=== PATIENT | male | born 1985 | race Caucasian/White ===

== ENCOUNTER 2019-11-23 23:05 | Emergency (ER) | payer OTHER ==
[~2019-11-23] VITALS: Ht 162.6 cm; Wt 78.9 kg
[2019-11-23 23:10] VITALS: BP 133/82
--- NOTE | 2019-11-23 23:16 | NUR ---
PT AMBULATED TO BED 05 WITH STEADY GAIT.
[2019-11-23 23:20] VITALS: BP 133/82
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
--- NOTE | 2019-11-23 23:25 | NUR ---
XRAY AT BEDSIDE.
[2019-11-24] MEDS ORDERED: KETOROLAC 60 MG/2 ML VIAL IM ONE (00:35)
--- NOTE | 2019-11-24 01:03 | NUR ---
Patient discharged with v/s stable. Written and verbal after care instructions given and explained. Patient alert, oriented and verbalized understanding of instructions. Ambulatory with steady gait. All questions addressed prior to discharge. ID band removed. Patient advised to follow up with PMD. Rx of MOTRIN AND NORCO given. Patient educated on indication of medication including possible reaction and side effects. Opportunity to ask questions provided and answered. PT IN STABLE CONDITION.
== END 2019-11-24 01:03 | disposition home or self-care (01) ==
LOC: MED 23:05
DX: S63.617A Unspecified sprain of left little finger, initial encounter (principal); S90.01XA Contusion of right ankle, initial encounter; E11.9 Type 2 diabetes mellitus without complications; V89.2XXA Person injured in unspecified motor-vehicle accident, traffic, initial encounter; Y93.89 Activity, other specified; Y92.89 Other specified places as the place of occurrence of the external cause; Y99.8 Other external cause status
CPT/HCPCS: 29130; 73130; 73610; 96372; 99284; J1885; Q0092

== ENCOUNTER 2020-08-23 21:16 | Emergency (ER) | payer OTHER ==
[~2020-08-23] VITALS: Ht 162.6 cm; Wt 75.7 kg
[2020-08-23 21:35] VITALS: BP 124/80
--- NOTE | 2020-08-23 21:40 | NUR ---
34/M C/O FEVER, COUGH, BODYACHES,HEADACHE WHICH STARTED TODAY. PT TESTED FOR COVID LAST TUESDAY WITH NEGATIVE RESULTS. PT DENIES ANY SOB, NAUSEA, VOMITING, DIARRHEA. PMH: KATIA GONGORA
[2020-08-23] MEDS ORDERED: ACETAMINOPHEN EXTRA STRENGTH 500 MG TAB PO ONE (21:45)
--- NOTE | 2020-08-23 22:31 | NUR ---
DR. LINO AT BEDSIDE EXAMINING PATIENT
[2020-08-23] MEDS ORDERED: KETOROLAC 30 MG/ML VIAL IVP ONE (22:35)
[2020-08-23] MEDS ORDERED: NACL 0.9% 2,000 ML IV ONE (22:35)
--- NOTE | 2020-08-23 22:47 | NUR ---
RADIOLOGY AT BEDSIDE
[2020-08-23 23:20] LABS: BASOPHILS % (AUTO) 0.5 % (0.0-2.0); EOSINOPHILS % (AUTO) 0.7 % (0.0-4.0); HEMATOCRIT 40.7 % (36-52); HEMOGLOBIN 13.8 g/dL (12.0-18.0); LYMPHOCYTES % (AUTO) 16.4 % (20.5-51.1); MEAN CORPUSCULAR HEMOGLOBIN 30 pg (27-31); MEAN CORPUSCULAR HGB CONC 34 g/dL (33-37); MEAN CORPUSCULAR VOLUME 87.8 fL (80-94); MONOCYTES # (AUTO) 0.5 K/uL (0.8-1.0); MONOCYTES % (AUTO) 7.8 % (1.7-9.3); NEUTROPHILS # (AUTO) 4.5 K/uL (1.8-7.7); NEUTROPHILS % (AUTO) 74.6 % (42.2-75.2); PLATELET COUNT (AUTO) 276 K/uL (140-450); RED BLOOD CELL COUNT(AUTO) 4.63 MIL/uL (4.20-6.10); RED CELL DISTRIBUTION WIDTH 12.2 % (11.6-13.7)
--- NOTE | 2020-08-23 23:20 | NUR ---
BLOOD DRAW DURING IV START. SAMPLE SENT TO LAB.
--- NOTE | 2020-08-23 23:37 | NUR ---
URINE SAMPLE COLLECTED AND SENT TO LAB
[2020-08-23 23:42] LABS: ANION GAP 12.4 (8-16); CREATININE 0.8 mg/dL (0.6-1.3); POTASSIUM 3.4 mmol/L (3.5-5.1); THYROID STIMULATING HORMONE 0.57 uIU/mL (0.34-3.74); TOTAL BILIRUBIN 0.8 mg/dL (0.0-1.0)
[2020-08-23 23:49] LABS: APPEARANCE,URINE CLEAR (CLEAR); BILIRUBIN,URINE NEGATIVE (NEGATIVE); BLOOD, URINE NEGATIVE (NEGATIVE); COLOR,URINE YELLOW (YELLOW); LEUKOCYTE ESTERASE ,URINE NEGATIVE (NEGATIVE); NITRITE, URINE NEGATIVE (NEGATIVE); UGLUCOSE 3+ (NEGATIVE)
[2020-08-24 00:20] LABS: RBC,URINE 0-5 /HPF (0-5); WBC,URINE 0-5 /HPF (0-5); YEAST,URINE Rare /HPF (None Seen)
[2020-08-24 01:20] VITALS: BP 126/79
[2020-08-24] MEDS ORDERED: AZIT250T11 PO (01:33)
--- NOTE | 2020-08-24 01:50 | NUR ---
Patient discharged with v/s stable. Written and verbal after care instructions given and explained. Patient alert, oriented and verbalized understanding of instructions. Ambulatory with to car. All questions addressed prior to discharge. IV ACCESS AND ID band removed. Patient advised to follow up with PMD. Rx of AZITHROMYCIN given. Patient educated on indication of medication including possible reaction and side effects. Opportunity to ask questions provided and answered.
== END 2020-08-24 01:50 | disposition home or self-care (01) ==
LOC: MED 21:16
DX: J18.9 Pneumonia, unspecified organism (principal); Z20.822 Contact with and (suspected) exposure to COVID-19; E11.9 Type 2 diabetes mellitus without complications
CPT/HCPCS: 36415; 71045; 80053; 81001; 82948; 84443; 84484; 85025; 87040; 87426; 93005; 96361; 96374; 99285; J1885; J7030; U0003

== ENCOUNTER 2020-08-25 10:36 | Inpatient (IN) | payer OTHER, SELFPAY ==
[~2020-08-25] VITALS: Ht 162.6 cm; Wt 76.7 kg
[~2020-08-25 10:36] MED LIST: AZIT250T11 PO
[2020-08-25 10:43] VITALS: BP 132/88
--- NOTE | 2020-08-25 10:49 | NUR ---
Pt taken to ER bed 10 via W/C.
--- NOTE | 2020-08-25 10:52 | NUR ---
Pt taken to ER bed 1 via W/C.
--- NOTE | 2020-08-25 10:58 | NUR ---
Dr. Mott is evaluating patient at bedside.
[2020-08-25] MEDS ORDERED: ACETAMINOPHEN 325 MG TAB PO ONE (11:00)
[2020-08-25] MEDS ORDERED: NACL 0.9% 1,000 ML IV ONE ×2 (11:00→13:05)
[2020-08-25] MEDS ORDERED: ONDANSETRON 4 MG/2 ML VIAL IVP ONE (11:00)
--- NOTE | 2020-08-25 11:00 | NUR ---
34 y/o F BIB from home with c/c nausea, vomiting, SOB x 3 days. Patient A&Ox4, ambulatory, seen here on 08/23/20. Patient returned stating worsening symptoms: SOB, nausea, vomiting, generalized body pain, cough, vomiting x 3 episodes today, fever, dysuria. Patient states tested + Covid on 08/16. Patient denies Covid vaccinations. Patient denies other urinary symptoms, diarrhea, loss of taste, smell, chills. Pt presents tachypneic @ RR 22 shallow/rapid, SpO2 94% on room air, HR 123, lung sounds crackles lower lobes. commercial lines underwriter and gown in place. Bed locked in lowest position, side rails x 1, call light in reach. PMH: DM Meds/Sx/Allergies: Denies
[2020-08-25] MEDS ORDERED: cefTRIAXone 1,000 MG VIAL ONE (11:13)
--- NOTE | 2020-08-25 11:16 | NUR ---
RT at pt bedside for ABGs.
--- NOTE | 2020-08-25 11:19 | NUR ---
Collected COVID BALTAZAR, RSV, and INFLUENZA A&B. Gave to candlemaking laborer at pt bedside.
--- NOTE | 2020-08-25 11:34 | NUR ---
Gave blood to laborer vineyard at pt bedside.
--- NOTE | 2020-08-25 11:43 | NUR ---
Provided pt with urinal for UA collection.
[2020-08-25 11:46] LABS: BASOPHILS % (AUTO) 0.8 % (0.0-2.0); HEMOGLOBIN 13.4 g/dL (12.0-18.0); LYMPHOCYTES # (AUTO) 0.6 K/uL (2.0-11.5); LYMPHOCYTES % (AUTO) 10.8 % (20.5-51.1); MEAN CORPUSCULAR HEMOGLOBIN 30 pg (27-31); MEAN CORPUSCULAR HGB CONC 34 g/dL (33-37); MEAN CORPUSCULAR VOLUME 89.4 fL (80-94); MONOCYTES # (AUTO) 0.4 K/uL (0.8-1.0); MONOCYTES % (AUTO) 6.7 % (1.7-9.3); NEUTROPHILS # (AUTO) 4.4 K/uL (1.8-7.7); NEUTROPHILS % (AUTO) 81.7 % (42.2-75.2); PLATELET COUNT (AUTO) 279 K/uL (140-450); RED BLOOD CELL COUNT(AUTO) 4.48 MIL/uL (4.20-6.10); RED CELL DISTRIBUTION WIDTH 12.1 % (11.6-13.7); WHITE BLOOD COUNT (AUTO) 5.3 K/uL (4.8-10.8)
--- NOTE | 2020-08-25 11:55 | NUR ---
dental technology advisor at pt bedside.
--- NOTE | 2020-08-25 12:00 | NUR ---
Patient resting in high-fowlers with at bedside. pattern maker programer in place. RR even/unlabored. Bed locked in lowest positoin, side rails x 1, call light in reach.
--- NOTE | 2020-08-25 12:00 | NUR ---
Patient requesting for fan or air conditioning. Staff made aware and increased room temp 3*
[2020-08-25 12:16] LABS: LACTATE DEHYDROGENASE 138 U/L (85-227)
[2020-08-25 12:17] LABS: RSV NEGATIVE (NEGATIVE)
[2020-08-25 12:23] LABS: C-REACTIVE PROTEIN QUANT 17.1 mg/dL (0.0-0.9)
--- NOTE | 2020-08-25 12:25 | NUR ---
Dr. Mott is reevaluating patient at bedside.
[2020-08-25 12:26] LABS: ALBUMIN 3.8 g/dL (3.4-5.0); ANION GAP 14.4 (8-16); CARBON DIOXIDE 23.6 mmol/L (21-32); CREATININE 0.9 mg/dL (0.6-1.3); PROTHROMBIN TIME 10.6 secs (10.8-13.4); TOTAL BILIRUBIN 0.8 mg/dL (0.0-1.0)
[2020-08-25] MEDS ORDERED: KETOROLAC 30 MG/ML VIAL ONE (13:04)
[2020-08-25] MEDS ORDERED: KETOROLAC 30 MG/ML VIAL IVP ONE (13:05)
[2020-08-25] MEDS ORDERED: INSULIN REGULAR, HUMAN 100 UNIT/ML VIAL SUBQ ONE (13:05)
--- NOTE | 2020-08-25 13:15 | NUR ---
Patient resting in high-fowlers with at bedside. radiation monitor in place. RR even/unlabored. Bed locked in lowest positoin, side rails x 1, call light in reach.
--- NOTE | 2020-08-25 14:15 | NUR ---
Patient resting in high-fowlers with at bedside. jig operator in place. RR even/unlabored. Bed locked in lowest positoin, side rails x 1, call light in reach.
[2020-08-25] MEDS ORDERED: MORPHINE SULFATE 2 MG/ML SYR IVP PRN (14:40)
[2020-08-25] MEDS ORDERED: MAG SULF 2000 MG/WATER PREMIX 50 ML IV PRN (14:40)
[2020-08-25] MEDS ORDERED: HYDROcodone/APAP 5/325 MG 1 TAB TAB PO PRN (14:40)
[2020-08-25] MEDS ORDERED: DOCUSATE SODIUM 100 MG GELCAP PO PRN (14:40)
[2020-08-25] MEDS ORDERED: LORazepam 2 MG/ML VIAL IM/IVP PRN (14:40)
[2020-08-25] MEDS ORDERED: ZOLPIDEM 5 MG TAB PO PRN (14:40)
[2020-08-25] MEDS ORDERED: POTASSIUM CHLORIDE 10 MEQ TABER PO PRN (14:40)
[2020-08-25] MEDS ORDERED: ALBUTEROL HFA MDI 90 MCG/ACTUATION 8 GM INH PRN (14:50)
[2020-08-25] MEDS ORDERED: ENOXAPARIN 80 MG/0.8 ML SYR SUBQ SCH (15:00)
--- NOTE | 2020-08-25 15:20 | NUR ---
Patient resting in high-fowlers with at bedside. air sampling and monitoring in place. RR even/unlabored. Bed locked in lowest positoin, side rails x 1, call light in reach.
[2020-08-25 15:21] LABS: THYROID STIMULATING HORMONE 0.5 uIU/mL (0.34-3.74)
[2020-08-25 15:23] LABS: APPEARANCE,URINE CLEAR (CLEAR); BILIRUBIN,URINE 1+ (NEGATIVE); BLOOD, URINE NEGATIVE (NEGATIVE); COLOR,URINE YELLOW (YELLOW); LEUKOCYTE ESTERASE ,URINE NEGATIVE (NEGATIVE); NITRITE, URINE NEGATIVE (NEGATIVE); PH,URINE 5.5 (5.0-9.0); UGLUCOSE 2+ (NEGATIVE)
[2020-08-25] MEDS: NACL 0.9% 1,000 ML IV SCH (15:55)
[2020-08-25 15:56] LABS: BARBITURATE, URINE NEGATIVE ng/ml (NEG <=200); BENZODIAZEPINE, URINE NEGATIVE ng/mL (NEG <=200); CANNABINOID, URINE NEGATIVE ng/mL (NEG <=50); COCAINE, URINE NEGATIVE ng/mL (NEG <=300); OPIATE, URINE NEGATIVE ng/mL (NEG <=2000); PHENCYCLIDINE SCREEN,URINE NEGATIVE ng/mL (NEG <=25)
--- NOTE | 2020-08-25 16:30 | NUR ---
Patient resting in high-fowlers with at bedside. monitoring tech in place. RR even/unlabored. SpO2 95% on room air. Bed locked in lowest positoin, side rails x 1, call light in reach.
--- NOTE | 2020-08-25 16:41 | NUR ---
Report given to Kaley. Advised of 5-10 minute ETA.
--- NOTE | 2020-08-25 16:44 | NUR ---
Lab at bedside.
--- NOTE | 2020-08-25 17:00 | NUR ---
PATIENT ARRIVED TO [place] VIA GURNEY. VS STABLE. PATIENT ALERT AND AWAKE. BREATHING IS EVEN AN UNLABORED. PATIENT ON ROOM AIR. PATIENT PRESENTS WITH COUGH. NO SPUTUM NOTED. PATIENT ON TELE MONITOR. ABDOMEN SOFT TO TOUCH NO COMPLAIN OF CALVILLO. PATIENT STATE FEELING WEAK DUE TO NOT EATING FOR THREE DAYS BECAUSE OF N/V. SKIN IS WARM TO TOUCH, CLEAN AND INTACT. PATIENT ABLE TO AMBULATE. EDUCATED PATIENT TO HIS SURROUNDING. CALL LIGHT WITHIN REACH. ALL SAFETY MEASURES IN PLACE. WILL CONTINUE TO MONITOR.
--- NOTE | 2020-08-25 17:00 | NUR ---
Patient will be admitted to care of Dr. Perea. Admited to Telemetry. Will go to room 115. Belongings list completed. Report to CHALO Roche.
--- NOTE | 2020-08-25 19:20 | NUR ---
ENDORSED TO CUPOLA HOIST OPERATOR NURSE FOR CONTINUITY OF CARE. PATIENT STABLE. ALL SAFETY MEASURES IN PLACE.
--- NOTE | 2020-08-25 19:22 | NUR ---
RECEIVED PT SLEEPING, EASILY AROUSABLE TO NAME, AAOX4, ABLE TO MAKE NEEDS KNOWN, SAT-92% ON ROOM AIR, OCCASIONAL DRY COUGH NOTED, DENIES ANY PAIN, NO N/V NOTED, IVF INFUSING WELL, MAINTAINED ON DROPLET PRECAUTION TO R/O COVID, CALL LIGHT WITHIN REACH.
[2020-08-25 20:00] VITALS: BP 140/82
[2020-08-25] MEDS: ACETAMINOPHEN 325 MG TAB PO PRN (20:01)
--- NOTE | 2020-08-25 20:01 | NUR ---
TEMP OF 102.6, TYLENOL PO GIVEN AND COOLING MEASURES WITH ICE PACKS STARTED, ENCOURAGE TO DRINK PLENTY OF FLUIDS, COMPLIANT, ALL NEEDS ATTENDED.
[2020-08-25] MEDS ORDERED: LOVENOX 1MG/KG Q12H SUBQ SCH (21:00)
[2020-08-25] MEDS: ZINC SULF 220 MG CAP PO SCH (21:06)
--- NOTE | 2020-08-25 21:30 | NUR ---
ORAL TEMP RECHECKED WITH 101.9, CONTINUE COOLING MEASURES, MONITORED CLOSELY.
[2020-08-25] MEDS ORDERED: DEXTROSE 50% 50 ML SYR IVP PRN (22:35)
[2020-08-26] VITALS: BP 120/70
[2020-08-26] MEDS: ONDANSETRON 4 MG/2 ML VIAL IM/IVP PRN (00:27)
--- NOTE | 2020-08-26 00:50 | NUR ---
ORAL TEMP 101.3, RECTAL TEMP OF 103.8, COOLING BLANKET APPLIED, TOLERABLE BACK PAIN AND HEADACHE, IVF INFUSING WELL, NO RESP DISTRESS NOTED, MONITORED CLOSELY.
--- NOTE | 2020-08-26 02:02 | NUR ---
ROUNDS MADE, SEEN PT SLEEPING, RECTAL TEMP OF 101.6, CONTINUE ON COOLING BLANKET, SAT-91% ON ROOM AIR, ST WITH 104 BPM, NO RESP DISTRESS NOTED, IVF INFUSING WELL.
[2020-08-26 04:00] VITALS: BP 122/80
--- NOTE | 2020-08-26 04:00 | NUR ---
PT SLEEPING, VITAL SIGNS TAKEN, ORAL TEMP-101.6, SAT-94% ON ROOM AIR, MEDICATED PRN WITH TYLENOL PO, CONTINUE ON COOLING BLANKET, IVF INFUSING WELL, MONITORED CLOSELY.
[2020-08-26] MEDS: ACETAMINOPHEN 325 MG TAB PO PRN (04:14)
[2020-08-26] MEDS: ENOXAPARIN 80 MG/0.8 ML SYR SUBQ SCH ×2 (05:50→17:34)
[2020-08-26] MEDS: INSULIN LISPRO SLIDING SCALE 100 UNITS/ML VIAL SUBQ PRN ×4 (05:50→20:22)
--- NOTE | 2020-08-26 06:00 | NUR ---
BLOOD SUGAR CHECKED WITH 208 RESULT, COVERAGE OF 4 UNITS GIVEN, DUE LOVENOX ADMINISTERED WITH EDUCATION PROVIDED, PT WANT TO GO BR TO HAVE A BM, REQUEST TO REMOVE RECTAL TEMP PROBE FOR NOW, LATEST ORAL TEMP OF 99.1, PT BACK TO BED, PREFER NOT TO RESUME COOLING BLANKET AT THIS TIME, VERBALIZE FEELING BETTER, ASKING FOR SOMETHING TO EAT SANDWICH AND JUICE PROVIDED, NO RESP DISTRESS NOTED, MONITORED CLOSELY.
[2020-08-26] MEDS: BLOOD GLUCOSE MONITORING 1 DEV DEV FS SCH ×4 (06:41→20:19)
[2020-08-26 07:08] LABS: ALBUMIN 3.2 g/dL (3.4-5.0); ANION GAP 18.9 (8-16); CARBON DIOXIDE 20.9 mmol/L (21-32); CREATININE 0.7 mg/dL (0.6-1.3); POTASSIUM 3.8 mmol/L (3.5-5.1); TOTAL BILIRUBIN 0.9 mg/dL (0.0-1.0)
[2020-08-26 07:09] LABS: BASOPHILS % (AUTO) 0.3 % (0.0-2.0); HEMOGLOBIN 13.4 g/dL (12.0-18.0); LYMPHOCYTES % (AUTO) 21.7 % (20.5-51.1); MEAN CORPUSCULAR HEMOGLOBIN 30 pg (27-31); MEAN CORPUSCULAR HGB CONC 34 g/dL (33-37); MEAN CORPUSCULAR VOLUME 88.5 fL (80-94); MONOCYTES # (AUTO) 0.3 K/uL (0.8-1.0); MONOCYTES % (AUTO) 5.6 % (1.7-9.3); NEUTROPHILS # (AUTO) 3.3 K/uL (1.8-7.7); NEUTROPHILS % (AUTO) 72.4 % (42.2-75.2); PLATELET COUNT (AUTO) 274 K/uL (140-450); RED BLOOD CELL COUNT(AUTO) 4.51 MIL/uL (4.20-6.10); RED CELL DISTRIBUTION WIDTH 12.1 % (11.6-13.7); WHITE BLOOD COUNT (AUTO) 4.6 K/uL (4.8-10.8)
--- NOTE | 2020-08-26 07:12 | NUR ---
PT AWAKE, NO SIGNS OF RESP DISTRESS, REPORT GIVEN TO CHALO MICHELLE FOR CONTINUITY OF CARE.
[2020-08-26 07:14] LABS: CHOL/HDL RATIO 6.3 (1-4.5); MAGNESIUM 1.6 mg/dL (1.8-2.4); PHOSPHORUS 2.6 mg/dL (2.5-4.9)
--- NOTE | 2020-08-26 07:17 | NUR ---
RECEIVED REPORT FROM NIGHTSHIFT NURSE. PT RESTING IN BED. ABLE TO MAKE NEEDS KNOWN. RESPIRATIONS EVEN AND UNLABORED WITH NO SOB OR RESPIRATORY DISTRESS. SKIN WARM AND DRY TO TOUCH. SAFETY MEASURES IN PLACE. WILL CONTINUE TO MONITOR
[2020-08-26] MEDS: NACL 0.9% 1,000 ML IV SCH (07:20)
[2020-08-26 08:00] VITALS: BP 132/74
[2020-08-26] MEDS: ASCORBIC ACID 500 MG TAB PO SCH (08:23)
[2020-08-26] MEDS: VITAMIN D 400 IU TAB PO SCH (08:23)
[2020-08-26] MEDS: ZINC SULF 220 MG CAP PO SCH ×2 (08:24→20:13)
[2020-08-26] MEDS: AZITHROMYCIN 250 MG TAB PO SCH (08:24)
--- NOTE | 2020-08-26 08:45 | NUR ---
ADMINISTERED SCHED MED PRESCRIBED PER MD ORDER. PT TOLERATED WELL. MEDICATION EDUCATION PERFORMED. PT VERBALIZED UNDERSTANDING. SAFETY MEASURES IN PLACE. WILL CONTINUE TO MONITOR
[2020-08-26] MEDS ORDERED: MAG SULF 2000 MG/WATER PREMIX 50 ML IV SCH (09:00)
[2020-08-26] MEDS ORDERED: AZITHROMYCIN 500 MG in DEXTROSE 5% 250 ML IV SCH (09:00)
--- NOTE | 2020-08-26 09:13 | NUR ---
PATIENT HAS BEEN SCREENED AND CATEGORIZED MODERATE NUTRITION RISK. PATIENT WILL BE SEEN WITHIN 3-5 DAYS OF ADMISSION. 08/28/20 08/30/[address]
--- NOTE | 2020-08-26 10:24 | NUR ---
OBTAINED COVID JOSE SWAB AND SENT TO LAB. PT TOLERATED WELL. ADMINISTERED SCHED MED PRESCRIBED PER MD ORDER. PT TOLERATED WELL. MEDICATION EDUCATION PERFORMED. PT VERBALIZED UNDERSTANDING. SAFETY MEASURES IN PLACE. WILL CONTINUE TO MONITOR
--- NOTE | 2020-08-26 11:30 | NUR ---
PT BLOOD SUGAR IS 234. PRN INSULIN ADMINISTERED PRESCRIBED PER MD ORDER. SAFETY MEASURES IN PLACE. WILL CONTINUE TO MONITOR
[2020-08-26 12:00] VITALS: BP 129/82
--- NOTE | 2020-08-26 12:00 | NUR ---
ADMINISTERED SCHED MED PRESCRIBED PER MD ORDER. PT TOLERATED WELL. MEDICATION EDUCATION PERFORMED. PT VERBALIZED UNDERSTANDING. SAFETY MEASURES IN PLACE. WILL CONTINUE TO MONITOR
--- NOTE | 2020-08-26 13:51 | NUR ---
PATIENT SITTING BY THE WINDOW TALKING TO FAMILY. NO SIGNS OF DISTRESS AT THIS TIME. SAFETY MEASURES IN PLACE. WILL CONTINUE TO MONITOR
--- NOTE | 2020-08-26 15:15 | NUR ---
DR. SEAY ORDERED CT ANGIO CHEST, CONSENT SIGNED AND PLACED IN CHART. WILL HOLD DINNER TRAY UNTIL AFTER PROCEDURE. SAFETY MEASURES IN PLACE. WILL CONTINUE TO MONITOR
--- NOTE | 2020-08-26 15:22 | NUR ---
DC PLANNING: CM SPOKE WITH PATIENTS BY PHONE. STATES THAT THEY LIVE IN A SINGLE STORY HOUSE, PATIENT IS INDEPENDENT IN ALL ACTIVITIES AND HAS NO PRIOR HISTORY OF HOME HEALTH. PATIENT IS DIABETIC, HAS DME OF GLUCOMETER, DOES NOT CHECK HIS BLOOD SUGARS. GOES TO THE [facility] BUT NOT REGULARLY, DOES TAKE INSULIN, DOES NOT FOLLOW AN ADA DIET. ENCOURAGED TO HAVE PATIENT RESUME REGULAR VISITS AND MD FOLLOW UP TO MONITOR DIABETES AND ADJUST TREATMENT NEEDED, ENDORSED THAT INFORMATION FOR ADA DIET IS AVAILABLE ON THE [facility] WEBSITE. NO FURTHER QUESTIONS OR CONCERNS VOICED BY SPOUSE, WAITING FOR PCR RESULTS. CM WILL CONTINUE TO FOLLOW FOR NEEDS. Addendum: 08/28/20 at 0856 by Nargis Botello CM DC PLANNING: DUARTE SPOKE WITH [facility] AT THE [facility] ([phone]), FAXED UPDATED CLINICAL INFORMATION ([phone]). [facility] STATES PATIENT IS AUTHORIZED THROUGH THE [facility], DID NOT HAVE AUTH NUMBER. NO PLANS TO TRANSFER TO [facility] AT THIS TIME, WILL WAIT FOR PCR RESULTS TO DETERMINE. CM WILL CONTINUE TO FOLLOW. Addendum: 08/28/20 at 1042 by Nargis Botello CM DC PLANNING: SPOKE WITH [facility] AT [facility], STATES [place] MD JAMIN AGUSTIN WILL BE CALLING THE ATTENDING MD HERE, CONTACT FOR ATTENDING DR. MENDOZA GIVEN, DR. MENDOZA ALSO NOTIFIED OF CALL, ASKED TO PUT IN ORDER FOR TRANSFER ONCE SHE SPEAKS WITH [facility] . POSITIVE PCR RESULTS ALSO FAXED TO [facility], CLINICAL REVIEW GIVEN. CM WILL CONTINUE TO FOLLOW FOR NEEDS.
[2020-08-26 16:00] VITALS: BP 125/85
--- NOTE | 2020-08-26 16:30 | NUR ---
PT BLOOD SUGAR IS 369. PRN INSULIN TO BE ADMINISTERED PER MD ORDER. SAFETY MEASURES IN PLACE. WILL CONTINUE TO MONITOR
--- NOTE | 2020-08-26 17:45 | NUR ---
ADMINISTERED SCHED MED PRESCRIBED PER MD ORDER. PT TOLERATED WELL. MEDICATION EDUCATION PERFORMED. PT VERBALIZED UNDERSTANDING. SAFETY MEASURES IN PLACE. WILL CONTINUE TO MONITOR
[2020-08-26] MEDS: BENZONATATE 100 MG CAPLF PO PRN (18:03)
--- NOTE | 2020-08-26 18:03 | NUR ---
PT COMPLAINED OF COUGH. PRN COUGH MEDICINE ADMINISTERED PRESCRIBED PER MD ORDER. PT TOLERATED WELL. SAFETY MEASURES IN PLACE. WILL CONTINUE TO MONITOR
--- NOTE | 2020-08-26 18:50 | NUR ---
HOLDING PT DINNER TRAY UNTIL AFTER CT IS COMPLETE. PER THE INSURANCE SALES PRODUCER, SHE WILL ARRIVE AFTER 1900. CHARGE AND PATIENT AWARE. SAFETY MEASURES IN PLACE. WILL CONTINUE TO MONITOR
--- NOTE | 2020-08-26 19:04 | NUR ---
PT WHEELED TO CT FOR IMAGING. REPORT GIVEN TO TECH. SAFETY MEASURES IN PLACE. WILL CONTINUE TO MONITOR
--- NOTE | 2020-08-26 19:26 | NUR ---
ENDORSED TO NIGHTSHIFT NURSE FOR CONTINUITY OF CARE.
--- NOTE | 2020-08-26 19:30 | NUR ---
RECIEVED BEDSIDE ENDORSEMENT FROM DAY SHIFT RN, PT SITTING AT BEDSIDE CHAIR, A&0X4, ABLE TO MAKE NEEDS KNOWN AND FOLLOWS COMMANDS, AMBULATORY, AFEBRILE, VSS, ST ON MONITOR, ON ROOM AIR, SKIN WARM DRY AND INTACT, ABD SOFT AND NON TENDER TO TOUCH, RAC 20G PIV SALINE LOCKED, LFA 20 G PIV INTACT AND INFUSING NS @! 60MLS/HR, PT SHOWING NO SIGNS OF ACUTE DISTRESS, SAFETY MEASURES IN PLACE, WILL CONTINUE WITH CURRENT POC
[2020-08-26 20:00] VITALS: BP 118/71
--- NOTE | 2020-08-26 20:23 | NUR ---
ADMINISTERED 2100H MEDICATION PER MD ORDERS, BLOOD GLUCOSE 321, ADMINISTERD 8 UNITS HUMALOG PER PROTOCOL
[2020-08-27] VITALS: BP 122/75
--- NOTE | 2020-08-27 | NUR ---
DR KENNEDY CALLED AND ORDERED TO DC Decadron ([email or web address]
--- NOTE | 2020-08-27 00:02 | NUR ---
PT ASLEEP AND SHOWING NO SIGNS OF ACUTE DISTRESS
--- NOTE | 2020-08-27 02:10 | NUR ---
PT ASLEEP AND SHOWING NO SIGNS OF ACUTE DISTRESS
[2020-08-27] MEDS: BENZONATATE 100 MG CAPLF PO PRN ×3 (02:11→17:36)
[2020-08-27] MEDS: ACETAMINOPHEN 325 MG TAB PO PRN ×2 (02:11→12:08)
[2020-08-27 04:00] VITALS: BP 111/88
[2020-08-27] MEDS: ENOXAPARIN 80 MG/0.8 ML SYR SUBQ SCH ×2 (05:05→17:35)
--- NOTE | 2020-08-27 05:06 | NUR ---
ADMINISTERED 0600H MEDICATION PER MD ORDERS
[2020-08-27 05:48] LABS: BASOPHILS % (AUTO) 0.3 % (0.0-2.0); HEMATOCRIT 36.2 % (36-52); HEMOGLOBIN 12.1 g/dL (12.0-18.0); LYMPHOCYTES % (AUTO) 22.1 % (20.5-51.1); MEAN CORPUSCULAR HEMOGLOBIN 29 pg (27-31); MEAN CORPUSCULAR HGB CONC 33 g/dL (33-37); MEAN CORPUSCULAR VOLUME 88.4 fL (80-94); MONOCYTES # (AUTO) 0.3 K/uL (0.8-1.0); NEUTROPHILS # (AUTO) 3.2 K/uL (1.8-7.7); NEUTROPHILS % (AUTO) 70.6 % (42.2-75.2); PLATELET COUNT (AUTO) 279 K/uL (140-450); RED CELL DISTRIBUTION WIDTH 11.9 % (11.6-13.7); WHITE BLOOD COUNT (AUTO) 4.5 K/uL (4.8-10.8)
[2020-08-27] MEDS: INSULIN LISPRO SLIDING SCALE 100 UNITS/ML VIAL SUBQ PRN ×4 (06:00→20:53)
[2020-08-27] MEDS: BLOOD GLUCOSE MONITORING 1 DEV DEV FS SCH ×4 (06:23→20:52)
--- NOTE | 2020-08-27 06:26 | NUR ---
BLOOD GLUCOSE 296, ADMINISTERED 6 UNITS HUMALOG NPER PROTOCOL
[2020-08-27 06:41] LABS: ALBUMIN 2.9 g/dL (3.4-5.0); ANION GAP 14.9 (8-16); CARBON DIOXIDE 23.8 mmol/L (21-32); CREATININE 0.8 mg/dL (0.6-1.3); POTASSIUM 3.7 mmol/L (3.5-5.1); TOTAL BILIRUBIN 0.9 mg/dL (0.0-1.0)
[2020-08-27 06:42] LABS: MAGNESIUM 1.7 mg/dL (1.8-2.4); PHOSPHORUS 3.1 mg/dL (2.5-4.9)
--- NOTE | 2020-08-27 07:37 | NUR ---
ENDORSED TO DAY SHIFT RN FOR CONTINUITY OF CARE
--- NOTE | 2020-08-27 07:38 | NUR ---
RECEIVED BEDSIDE ENDORSEMENT FROM ECOLOGY TEACHER NURSE FOR CONTINUITY OF CARE. PT SITTING AT BEDSIDE CHAIR, A&0X4, ABLE TO MAKE NEEDS KNOWN AND FOLLOWS COMMANDS. RESPIRATIONS EVEN AND UNLABORED. ON ROOM AIR. NO S/S OF RESPIRATORY DISTRESS NOTED. SKIN WARM DRY AND INTACT. RAC 20G PIV SALINE LOCKED, LFA 20 G IV INFUSING NS @ 60MLS/HR. INTACT AND PATENT. PLAN OF CARE DISCUSSED. SAFETY MEASURES IN PLACE, CALL LIGHT WITHIN REACH. WILL CONTINUE TO MONITOR.
[2020-08-27 08:00] VITALS: BP 119/77
[2020-08-27] MEDS: ASCORBIC ACID 500 MG TAB PO SCH (09:32)
[2020-08-27] MEDS: VITAMIN D 400 IU TAB PO SCH (09:32)
[2020-08-27] MEDS: ZINC SULF 220 MG CAP PO SCH ×2 (09:32→20:48)
[2020-08-27] MEDS: AZITHROMYCIN 250 MG TAB PO SCH (09:32)
--- NOTE | 2020-08-27 09:32 | NUR ---
PATIENT IS COMPLAINING OF COUGH. ADMINISTERED PRN BENZONATATE PRN PER MD ORDERED.
--- NOTE | 2020-08-27 10:00 | NUR ---
ALL SCHEDULED MEDICATIONS GIVEN. PT IS STABLE. NO DISTRESS NOTED. WILL CONTINUE TO MONITOR.
[2020-08-27] MEDS ORDERED: guaiFENesin DM 200/20 MG-10 ML 10 ML UDC PO PRN (11:40)
[2020-08-27 12:00] VITALS: BP 121/67
--- NOTE | 2020-08-27 12:03 | NUR ---
BLOOD GLUCOSE CHECK WAS 266. INSULIN COVERAGE NEEDED. ADMINISTERED 6 UNITS OF INSULIN SQ PER MD ORDERED.
--- NOTE | 2020-08-27 12:08 | NUR ---
PATIENT'S TEMP WAS 102.8. ADMINISTERED TYLENOL PRN AND INITIATED COOLING MEASURES.
[2020-08-27] MEDS ORDERED: MAGNESIUM OXIDE 400 MG TAB PO SCH (13:00)
--- NOTE | 2020-08-27 14:30 | NUR ---
CHECKED ON PATIENT. PATIENT SITTING ON THE CHAIR TALKING TO VISITORS BY THE WINDOW. NO S/S OF DISTRESS NOTED. WILL CONTINUE TO MONITOR.
[2020-08-27 16:00] VITALS: BP 113/71
[2020-08-27] MEDS: NACL 0.9% 1,000 ML IV SCH ×2 (17:15)
--- NOTE | 2020-08-27 17:36 | NUR ---
PATIENT IS COMPLAINING OF COUGH. ADMINISTERED PRN BENZONATATE PRN PER MD ORDERED. BLOOD GLUCOSE CHECK WAS 309. INSULIN COVERAGE NEEDED. ADMINISTERED 8 UNITS OF INSULIN SQ PER MD ORDERED.
--- NOTE | 2020-08-27 19:20 | NUR ---
ENDORSED TO LEVEL VIAL MARKER NURSE FOR CONTINUITY OF CARE. PT IS STABLE.
--- NOTE | 2020-08-27 19:21 | NUR ---
RECEIVED PATIENT FROM AM NURSE FOR CONTINUITY OF CARE. PATIENT SEEN SITTING UP IN CHAIR. A/A/O X4. RESPIRATORY EVEN AND UNLABORED, ON ROOM AIR, NO SIGN OF DISTRESS NOTED. SKIN WARM, DRY, NON DIAPHORETIC. IV ON RIGHT AC 20G, INTACT AND PATENT, SALINE LOCK. IV ON LEFT FA 20G, INTACT AND PATENT, IS INFUSING FLUID ORDER. PLAN OF CARE DISCUSSED, PATIENT VERBALIZED UNDERSTANDING. PRECAUTION IN PLACE. CALL LIGHT WITHIN REACH. WILL CONTINUE TO MONITOR.
[2020-08-27 20:00] VITALS: BP 114/83
--- NOTE | 2020-08-27 20:00 | NUR ---
PATIENT COMPLAINS OF SOB, LUNG SOUND CLEAR TO AUSCULTATE WITH DIMINISH ON THE BILATERAL LOWER LOBES. O2 SAT 86-88%. 2L O2 NC GIVEN, PATIENT REPORTS FEELING BETTER. O2 SAT INCREASE 92-93%. NO SIGN OF DISTRESS NOTED. PRECAUTION IN PLACE. CALL LIGHT WITHIN REACH. RT NOTIFIED. WILL CONTINUE TO MONITOR.
--- NOTE | 2020-08-27 20:52 | NUR ---
BLOOD SUGAR CHECK 230, 4UNITS INSULIN GIVEN. SCHEDULE MEDICATION GIVEN WITHIN EDUCATION. PATIENT TOLERATED WELL. PRECAUTION IN PLACE. CALL LIGHT WITHIN REACH. WILL CONTINUE TO MONITOR.
--- NOTE | 2020-08-27 21:26 | NUR ---
PATIENT'S CALLED TO UPDATE PATIENT'S CONDITION. ALL QUESTIONS WERE ANSWERED. WILL CONTINUE TO UPDATE.
[2020-08-27] MEDS: ONDANSETRON 4 MG/2 ML VIAL IM/IVP PRN (22:55)
--- NOTE | 2020-08-27 22:55 | NUR ---
PATIENT VOMIT 200CC CLEAR LIQUID EMESIS. ZOFRAN PRN GIVEN WITH EDUCATION. PATIENT VERBALIZED UNDERSTANDING. ASSIST PATIENT AMBULATE AND SIT UP IN CHAIR. PATIENT TOLERATED WELL, NO SIGN OF DISTRESS NOTED. PRECAUTION IN PLACE. CALL LIGHT WITHIN REACH. WILL CONTINUE TO MONITOR.
[2020-08-28] VITALS: BP 122/76
--- NOTE | 2020-08-28 | NUR ---
PATIENT IS HAVING FEVER 100.1 F. COOLING MEASURE APPLIED, TYLENOL PRN GIVEN WITH EDUCATION, PATIENT VERBALIZED UNDERSTANDING. PATIENT TOLERATED WELL. NO SIGN OF DISTRESS NOTED. PRECAUTION IN PLACE. CALL LIGHT WITHIN REACH. WILL CONTINUE TO MONITOR.
[2020-08-28] MEDS: ACETAMINOPHEN 325 MG TAB PO PRN (00:20)
--- NOTE | 2020-08-28 02:00 | NUR ---
ROUND CHECK. PATIENT IS SITTING UP IN CHAIR, SLEEPING, NO SIGN OF DISTRESS NOTED, O2 SAT 97%. PRECAUTION IN PLACE, CALL LIGHT WITHIN REACH. WILL CONTINUE TO MONITOR.
[2020-08-28 04:00] VITALS: BP 116/77
--- NOTE | 2020-08-28 04:00 | NUR ---
ASSIST PATIENT AMBULATE TO BED. PATIENT TOLERATED WELL. NO SIGN OF DISTRESS NOTED. PRECAUTION IN PLACE. CALL LIGHT WITHIN REACH. WILL CONTINUE TO MONITOR.
[2020-08-28 05:24] LABS: BASOPHILS % (AUTO) 0.6 % (0.0-2.0); EOSINOPHILS % (AUTO) 0.2 % (0.0-4.0); HEMATOCRIT 38.2 % (36-52); HEMOGLOBIN 12.8 g/dL (12.0-18.0); LYMPHOCYTES # (AUTO) 1.3 K/uL (2.0-11.5); LYMPHOCYTES % (AUTO) 27.9 % (20.5-51.1); MEAN CORPUSCULAR HEMOGLOBIN 29 pg (27-31); MEAN CORPUSCULAR HGB CONC 33 g/dL (33-37); MEAN CORPUSCULAR VOLUME 87.8 fL (80-94); MONOCYTES # (AUTO) 0.4 K/uL (0.8-1.0); MONOCYTES % (AUTO) 8.1 % (1.7-9.3); NEUTROPHILS % (AUTO) 63.2 % (42.2-75.2); PLATELET COUNT (AUTO) 288 K/uL (140-450); RED BLOOD CELL COUNT(AUTO) 4.36 MIL/uL (4.20-6.10); WHITE BLOOD COUNT (AUTO) 4.7 K/uL (4.8-10.8)
[2020-08-28] MEDS: ENOXAPARIN 80 MG/0.8 ML SYR SUBQ SCH (06:35)
[2020-08-28] MEDS: BLOOD GLUCOSE MONITORING 1 DEV DEV FS SCH ×2 (06:37→12:26)
--- NOTE | 2020-08-28 06:37 | NUR ---
BLOOD SUGAR CHECK 97, NO INSULIN NEEDS TO COVER. SCHEDULE MEDICATION GIVEN WITH EDUCATION. PATIENT VERBALIZED UNDERSTANDING. PRECAUTION IN PLACE. CALL LIGHT WITHIN REACH. WILL CONTINUE TO MONITOR.
--- NOTE | 2020-08-28 07:25 | NUR ---
ENDORSED PATIENT TO AM NURSE FOR CONTINUITY OF CARE. PATIENT IS STABLE.
--- NOTE | 2020-08-28 07:26 | NUR ---
RECEIVED REPORT FROM LEAD PRINCIPAL TECHNICAL ARCHITECT NURSE. PATIENT ON O2 2L/MIN VIA NC. AAOX4, SKIN INTACT. IV SITE INTACT PATENT, AND INFUSING IVF PER MD ORDERS. REVIEWED PLAN OF CARE WITH PATIENT. PATIENT VERBALIZED UNDERSTANDING. SAFETY MEASURES IN PLACE, CALL LIGHT WITHIN REACH. WILL CONTINUE TO MONITOR.
[2020-08-28 07:33] LABS: ALBUMIN 1.5 g/dL (3.4-5.0); ANION GAP 9.3 (8-16); CARBON DIOXIDE 25.3 mmol/L (21-32); CREATININE 0.4 mg/dL (0.6-1.3); TOTAL BILIRUBIN 0.2 mg/dL (0.0-1.0)
[2020-08-28 07:51] LABS: POTASSIUM 2.6 mmol/L (3.5-5.1)
[2020-08-28 08:00] VITALS: BP 114/77
[2020-08-28] MEDS: AZITHROMYCIN 250 MG TAB PO SCH (08:42)
[2020-08-28] MEDS: ASCORBIC ACID 500 MG TAB PO SCH (08:42)
[2020-08-28] MEDS: VITAMIN D 400 IU TAB PO SCH (08:42)
[2020-08-28] MEDS: ZINC SULF 220 MG CAP PO SCH (08:42)
--- NOTE | 2020-08-28 08:56 | NUR ---
SCHEDULED MEDICATIONS DUE GIVEN. WILL CONTINUE TO MONITOR.
[2020-08-28] MEDS ORDERED: POTASSIUM CHLORIDE 10 MEQ TABER PO SCH (09:00)
[2020-08-28] MEDS: NACL 0.9% 1,000 ML IV SCH (09:21)
[2020-08-28 09:28] LABS: MAGNESIUM 2.1 mg/dL (1.8-2.4); PHOSPHORUS 1.8 mg/dL (2.5-4.9)
[2020-08-28] MEDS ORDERED: POTASSIUM CHLORIDE 40 MEQ, LIDOCAINE MPF 1% 25 MG in NACL 0.9% 250 ML IV SCH (09:30)
[2020-08-28] MEDS ORDERED: remdesivir COMMUNICATION ORDER 1 EA MISC MC PRN (10:30)
[2020-08-28] MEDS ORDERED: METOPROLOL 25 MG TAB PO SCH (10:55)
--- NOTE | 2020-08-28 10:55 | NUR ---
SCHEDULED MEDICATIONS DUE GIVEN. WILL CONTINUE.
--- NOTE | 2020-08-28 12:02 | NUR ---
CALLED [facility] IN [place] AND GAVE REPORT TO CHALO ASIF. ANSWERED ALL OF HIS QUESTIONS REGARDING TRANSFER. NOTIFIED HIM OF TRANSPORT TIME WITH [facility] AROUND 1230. TRANSFER INSTRUCTIONS PROVIDED TO PATIENT IN PREFERRED LANGUAGE OF CHINESE. ANSWERED ALL OF PATIENT'S QUESTIONS REGARDING TRANSFER. VERBALIZED COMPLETE UNDERSTANDING. WILL CONTINUE TO MONITOR.
[2020-08-28] MEDS ORDERED: ROC1PM IV (12:11)
[2020-08-28] MEDS ORDERED: DEXA6TAB1 PO (12:11)
[2020-08-28] MEDS ORDERED: METO25TA PO (12:11)
[2020-08-28] MEDS ORDERED: AZIT250T11 PO (12:11)
[2020-08-28] MEDS ORDERED: VITC500 PO (12:11)
[2020-08-28] MEDS: INSULIN LISPRO SLIDING SCALE 100 UNITS/ML VIAL SUBQ PRN (12:25)
--- NOTE | 2020-08-28 12:26 | NUR ---
SCHEDULED MEDICATIONS DUE GIVEN. WILL CONTINUE TO MONITOR.
--- NOTE | 2020-08-28 13:05 | NUR ---
[facility] TRANSPORT ON UNIT TO TAKE PATIENT TO [facility] IN [place]. PATIENT TRANSFERRED AT THIS TIME IN STABLE CONDITION.
[2020-08-28] MEDS ORDERED: REMDESIVIR. 200 MG in NACL 0.9% 100 ML IV SCH (15:00)
[2020-08-28] MEDS ORDERED: remdesivir CLINICAL MONITORING 1 EA MISC MC PRN (15:00)
[2020-08-29] MEDS ORDERED: REMDESIVIR. 100 MG in NACL 0.9% 100 ML IV SCH (15:00)
== END 2020-08-28 13:05 | disposition short-term general hospital (02) | DRG 871 ==
LOC: MED 10:36 → UNDOADMIN 15:43 → MTU 15:43
DX: A41.89 Other specified sepsis (principal); U07.1 COVID-19; J12.82 Pneumonia due to coronavirus disease 2019; J96.01 Acute respiratory failure with hypoxia; D68.59 Other primary thrombophilia; E87.1 Hypo-osmolality and hyponatremia; E44.0 Moderate protein-calorie malnutrition; E66.9 Obesity, unspecified; E11.65 Type 2 diabetes mellitus with hyperglycemia; E87.8 Other disorders of electrolyte and fluid balance, not elsewhere classified; E87.6 Hypokalemia; E83.42 Hypomagnesemia; E86.0 Dehydration; Z68.29 Body mass index [BMI] 29.0-29.9, adult
CPT/HCPCS: 36415; 36600; 71045; 71275; 80053; 80305; 81003; 82150; 82550; 82728; 82803; 82948; 83036; 83605; 83615; 83690; 83735; 83880; 84100; 84134; 84443; 84484; 85025; 85379; 85384; 85610; 85651; 85730; 86140; 87040; 87081; 87086; 87420; 87804; 93005; 96361; 96365; 96372; 96375; 99291; J0696; J1650; J1815; J1885; J2001; J2405; J3475; J3480; J7030; J7060; Q9967; U0003